=== PATIENT | male | born 1960 | race American Indian/Alaskan Native ===

== ENCOUNTER 2021-02-28 14:17 | Emergency (ER) | payer OTHER ==
--- NOTE | 2021-02-28 14:47 | EDM.PDOC ---
<Oneil Moon - Last Filed: 02/28/21 18:21> ED HPI GENERAL MEDICAL PROBLEM - General Chief Complaint: Cardiovascular Problem Stated Complaint: [facility] Time Seen by Provider: 02/28/21 14:32 - Related Data Allergies Allergy/AdvReac Type Severity Reaction Status Date / Time Penicillins Allergy Severe Rash Verified 02/28/21 14:25 Home Meds: Home Meds Celecoxib [CeleBREX] 0 mg PO DAILY 02/28/21 [History] Docusate Sodium [Colace] 100 mg PO DAILY 02/28/21 [History] Tamsulosin HCl [Flomax] 0.4 mg PO DAILY 02/28/21 [History] Venlafaxine [Effexor] 0 mg PO DAILY 02/28/21 [History] Course - Re-Assessments/Exams Free Text/Narrative Re-Assessment/Exam: 02/28/21 18:[address] Wilkins. I have evaluated and examined the patient, and agree with Dr. Wilkins's history and physical examination as documented. The patient has a history of hypertension, yet his medication list does not list any antihypertensive medications. When asked about this, the patient reports that he takes clonidine and losartan every morning - he does not recall the doses offhand. He has been taking these for many years, including this morning. His puts his pills into a pillbox, therefore there is no chance that he could have accidentally doubled up, however, these medications are in addition to tamsulosin that he takes for BPH. Because the patient is hypotensive but not orthostatic, and his extensive work-up is completely unremarkable, I think it most likely that the patient's hypotension is due to the combination of his clonidine, losartan, and tamsulosin, in addition to perhaps being a bit dry, as evidenced by his dark kendell urine. Now that the patient has received 2.5 L of IV fluid, his BP is up to 106/64, and he reports that he is feeling much better, but hungry. A meal has been ordered. Once he has finished dinner, I expect him to be fit for discharge home. Departure - Departure Disposition: Home, Self-Care 01 Clinical Impression: Hypotension determined by examination, Hypotension due to drugs Adverse effects of medication Qualifiers: Encounter type: initial encounter Qualified Code(s): T50.905A - Adverse effect of unspecified drugs, medicaments and biological substances, initial encounter Referrals: PCP,Not In Area [Primary Care Provider] - Forms: ED Department Discharge Additional Instructions: Evaluation in the emergency room today in regards to feeling lightheaded dizzy after work yesterday and again after getting back from mine on today. Feelings were strong enough to make you feel like he could pass out. Luckily you did not fall or get hurt. Blood pressure in the emergency room was found to be quite low with a systolic blood pressure of 85-89/60. No obvious reason for this was identified on history or physical examination. You were therefore given a liter of fluids and paramedics had given you 500 mils of fluid in route to [facility]. Even after a liter and a half of fluids you continue to have a low blood pressure. Lab tests did not reveal any abnormalities in particular no sig nificant evidence of dehydration. You therefore were given his second liter of IV fluid and blood pressure did come up slightly with this. Further interrogation revealed that you are on a another blood pressure medication called losartan 100 mg/hydrochlorothiazide 25 mg tablet daily for blood pressure control as well as the tamsulosin which is being used for prostate shrinkage but is also a blood pressure lowering agent. It is suspect the combination is too much for you and lowering your blood pressure too much. Therefore at this time advised to stop the losartan/hydrochlorothiazide tablet and have your blood pressure checked every couple of weeks to see if there is any indication that you truly need a blood pressure pill. I suspect with your blood pressure this low you do not need any further blood pressure medication at this time. Please note it will take several days for the losartan medication to get out of your bloodstream completely usually between 3 and 5 days therefore you could still experience a few episodes of dizziness lightheadedness until the medication is fully out of your bloodstream. <Audie Wilkins - Last Filed: 02/28/21 19:22> ED HPI GENERAL MEDICAL PROBLEM - General Source of Information: Reports: Patient, Family (spouse) History Limitations: Reports: No Limitations - History of Present Illness INITIAL COMMENTS - FREE TEXT/NARRATIVE: 60-year-old male [place] presents to the ED per [facility], feeling lightheaded dizzy like he could faint. Blood pressure on initial evaluation was 91/60. He states it is normally 130/80. Orthostatic blood pressures today lying was 84/59 with a heart rate of 65 sitting it was 87/62 with a heart rate of 75 and standing it went down to 80/60 with a pulse of 79 sats remained stable at 97%. He is not exhibiting any outward signs of an upper or lower GI bleed. He does not eat or drink all that well states he only eats once daily. Today he got up very early and drove to my not and back and when he got out of the vehicle he felt lightheaded dizzy like he might pass out. He has had no nausea vomiting or diarrhea or other fluid losses to account for his illness. He is on no new medications. He is on a antihypertensive medication. Appreciated first episode of feeling dizzy lightheaded after getting off work last night around 1630 hrs. He then experienced again this morning after getting back from my not. Experienced associated numbness tingling in his fingers and toes as well I believe due to hyperventilation syndrome. His spouse commented that he also seem to cramp up like 1 would see with dehydration. Paramedics assessed him and give him a 500 mils fluid bolus in route to the hospital. He denies taking Motrin Aleve or aspirin on a regular basis. However his med list indicates that he is on Celebrex daily. He called 911. Onset: Today, Sudden Onset Date: 02/27/21 Onset Time: 16:30 (Is noticed feeling lightheaded dizzy and weak yesterday after getting off work.) Duration: Day(s): (Last 24 hours.), Intermittent, Waxing/Waning Location: Reports: Generalized (Neurolysed weakness lightheadedness dizziness and feeling like he might faint.) Quality: Denies: Same as Previous Episode Severity: Moderate Improves with: Reports: Rest, Other (Lying down seems to help as well.) Worsens with: Reports: Movement (Worse with standing up) Context: Denies: Activity, Exercise, Lifting, Sick Contact, Trauma, Other Associated Symptoms: Reports: Malaise, Nausea/Vomiting (Perhaps a little nausea this morning after). Denies: No Other Symptoms, Confusion, Chest Pain, Cough, cough w sputum, Diaphoresis, Fever/Chills, Headaches, Loss of Appetite, Rash, Seizure, Shortness of Breath, Syncope, Weakness, Other Treatments END FINDER TWISTING DEPARTMENT: Reports: Other (see below) (None.) Headache Pain Score (Numeric/FACES): 2 Past Medical History HEENT History: Reports: Impaired Vision Cardiovascular History: Reports: Hypertension Gastrointestinal History: Reports: Diverticulosis Genitourinary History: Reports: Prostate Disorder - Past Surgical History HEENT Surgical History: Reports: Tonsillectomy GI Surgical History: Reports: Other (See Below) Other GI Surgeries/Procedures: "Piece of intestine was cut out." Musculoskeletal Surgical History: Reports: Shoulder Surgery Social & Family History - Tobacco Use Tobacco Use Status *Q: Current Every Day Tobacco User Years of Tobacco use: 40 Packs/Tins Daily: 1 - Caffeine Use Caffeine Use: Reports: Coffee - Recreational Drug Use Recreational Drug Use: Yes Recreational Drug Type: Reports: Marijuana/Hashish - Living Situation & Occupation Living situation: Reports: Occupation: Employed ED ROS GENERAL - Review of Systems Review Of Systems: See Below Constitutional: Reports: Malaise, Weakness, Fatigue, Decreased Appetite. Denies: Fever, Chills, Weight Loss HEENT: Reports: No Symptoms, Glasses Respiratory: Denies: Shortness of Breath, Wheezing (Masses sometimes for reading), Pleuritic Chest Pain, Cough Cardiovascular: Reports: Blood Pressure Problem, Dyspnea on Exertion (On occasion .), Edema (Trace around the ankles at times), Lightheadedness. Denies: Chest Pain, Claudication, Orthopnea (He is on antihypertensive medication) Endocrine: Reports: Fatigue GI/Abdominal: Reports: No Symptoms. Denies: Diarrhea, Hematemesis, Hematochezia, Melena : Reports: Frequency, Other Musculoskeletal: Reports: Back Pain, Joint Pain (Nocturia x2. Known BPH.) Skin: Reports: No Symptoms Neurological: Reports: Dizziness, Difficulty Walking, Weakness. Denies: Syncope (Dizzy today feeling of near syncope.) Psychiatric: Reports: No Symptoms (To generalized weakness) Hematologic/Lymphatic: Reports: No Symptoms Immunologic: Reports: No Symptoms ED EXAM, GENERAL - Physical Exam Exam: See Below Exam Limited By: No Limitations General Appearance: Alert, WD/WN, No Apparent Distress, Other (Temperature is 36.2 degrees. Heart rate 78 and sinus. Respiratory to 16 with O2 sats of 98% room air BP was 90-73 initially. It did come down to 81/60 for period of time. Note he had been given 500 mils of normal saline by paramedics in route to the hospital.) Eye Exam: Bilateral Eye: Normal Inspection, PERRL (No scleral icterus or blepharal pallor.) Ears: Normal TMs Throat/Mouth: Normal Inspection, Normal Lips, Normal Teeth, Normal Oropharynx Head: Atraumatic, Normocephalic Neck: Normal Inspection, Supple, Non-Tender, Full Range of Motion. No: Lymphadenopathy (L), Lymphadenopathy (R) Respiratory/Chest: No Respiratory Distress, Lungs Clear, Normal Breath Sounds, No Accessory Muscle Use, Chest Non-Tender Cardiovascular: Normal Peripheral Pulses, Regular Rate, Rhythm, No Edema, No Gallop, No Murmur, No Rub Peripheral Pulses: 2+: Posterior Tibial (L), Posterior Tibial (R), Dorsalis Pedis (L), Dorsalis Pedis (R), 3+: Carotid (L), Carotid (R) GI/Abdominal: Normal Bowel Sounds, Soft, Non-Tender, No Organomegaly, No Mass, Pelvis Stable Back Exam: Normal Inspection, Full Range of Motion. No: CVA Tenderness (L), CVA Tenderness (R) Extremities: Normal Inspection, Normal Range of Motion, Non-Tender, Other Neurological: Alert, Oriented (His pedal edema around the ankles.), CN II-XII Intact, Normal Cognition Psychiatric: Normal Affect, Normal Mood Skin Exam: Warm, Dry, Intact, Normal Color, No Rash #1 Interpretation EKG Date: 02/28/21 Time: 14:19 Rhythm: NSR Rate (Beats/Min): 82 [place]: LAD-Left [place] Deviation (-47 degrees) P-Wave: Enlarged (Left atrial hypertrophy pattern) QRS: LBBB (Left anterior fascicular block pattern) ST-T: Other (T wave flattening aVL nonspecific finding) QT: Normal EKG Interpretation Comments: Abnormal ECG #2 Interpretation EKG Date: 02/28/21 Time: 15:17 Rhythm: NSR Rate (Beats/Min): 67 [place]: LAD-Left [place] Deviation (-43 degrees left axis deviation) P-Wave: Enlarged (Left atrial hypertrophy pattern) QRS: LBBB ST-T: Other (Left anterior fascicular block pattern diffuse early repolarization pattern) QT: Normal EKG Interpretation Comments: Abnormal ECG Course - Vital Signs Last Recorded V/S: Last Vital Signs Temp 36.2 C 02/28/21 14:23 Pulse 78 02/28/21 14:23 Resp 16 02/28/21 14:23 BP 92/73 02/28/21 14:23 Pulse Ox 98 02/28/21 14:23 Orthostatic Blood Pressure [ 84/58 Standing] Orthostatic Blood Pressure [ 82/55 Sitting] Orthostatic Blood Pressure [ 91/58 Supine] - Orders/Labs/Meds Orders: Active Orders 24 hr Category Date Time Status EKG Documentation Completion [RC] STAT Care 02/28/21 14:46 Active Orthostatic Vital Signs [RC] ASDIRECTED Care 02/28/21 14:45 Active Orthostatic Vital Signs [RC] ASDIRECTED Care 02/28/21 16:33 Active CULTURE BLOOD [BC] Stat Lab 02/28/21 15:03 Received CULTURE BLOOD [BC] Stat Lab 02/28/21 15:09 Received Dextrose 5%-Lactated Ringers 1,000 ml Med 02/28/21 15:00 Active IV ASDIRECTED Lactated Ringers [Ringers, Lactated] 1,000 ml Med 02/28/21 17:15 Active IV ASDIRECTED Blood Culture x2 Reflex Set [OM.PC] Stat Oth 02/28/21 14:46 Ordered Medication Orders Dextrose/Lactated Ringer's (Dextrose 5%-Lactated Ringers) 1,000 mls @ 999 mls/hr IV ASDIRECTED PEDRO Last Admin: 02/28/21 16:45 Dose: 999 mls/hr Documented by: Infusion: 02/28/21 16:27 Dose: 999 mls/hr Documented by: Admin: 02/28/21 15:26 Dose: 999 mls/hr Documented by: GREG Lactated Ringer's (Ringers, Lactated) 1,000 mls @ 999 mls/hr IV ASDIRECTED PEDRO Last Admin: 02/28/21 17:15 Dose: 999 mls/hr Documented by: MARILUZ Labs: Laboratory Tests 02/28/21 02/28/21 02/28/21 Range/Units 15:09 15:09 15:09 WBC 13.35 H (4.23-9.07) K/mm3 RBC 4.67 (4.63-6.08) M/mm3 Hgb 13.9 (13.7-17.5) gm/dl Hct 41.6 (40.1-51.0) % MCV 89.1 (79.0-92.2) fl MCH 29.8 (25.7-32.2) pg MCHC 33.4 (32.2-35.5) g/dl RDW Std Deviation 45.1 H (35.1-43.9) fL Plt Count 378 H (163-337) K/mm3 MPV 9.3 L (9.4-12.3) fl Neut % (Auto) 81.8 H (34.0-67.9) % Lymph % (Auto) 10.3 L (21.8-53.1) % Harmon % (Auto) 6.7 (5.3-12.2) % Eos % (Auto) 0.7 L (0.8-7.0) Baso % (Auto) 0.3 (0.1-1.2) % Neut # (Auto) 10.90 H (1.78-5.38) K/mm3 Lymph # (Auto) 1.38 (1.32-3.57) K/mm3 Harmon # (Auto) 0.90 H (0.30-0.82) K/mm3 Eos # (Auto) 0.10 (0.04-0.54) K/mm3 Baso # (Auto) 0.04 (0.01-0.08) K/mm3 PT 11.1 (9.7-12.0) SECONDS INR 1.04 APTT 27.1 (21.7-31.4) SECONDS D-Dimer, Quantitative (0.19-0.50) mg/L Sodium 135 L (136-145) mEq/L Potassium 4.1 (3.5-5.1) mEq/L Chloride 100 (98-107) mEq/L Carbon Dioxide 26 (21-32) mEq/L Anion Gap 13.1 (5-15) BUN 16 (7-18) mg/dL Creatinine 1.2 (0.7-1.3) mg/dL Est Cr Clr Drug Dosing 63.33 mL/min Estimated GFR (MDRD) > 60 (>60) mL/min BUN/Creatinine Ratio 13.3 L (14-18) Glucose 113 H (74-106) mg/dL Lactic Acid (0.4-2.0) mmol/L Calcium 8.9 (8.5-10.1) mg/dL Magnesium 2.3 (1.8-2.4) mg/dl Total Bilirubin 0.5 (0.2-1.0) mg/dL AST 15 (15-37) U/L ALT 21 (16-63) U/L Alkaline Phosphatase 51 (46-116) U/L CK-MB (CK-2) 1.6 (0-3.6) ng/ml Troponin I < 0.017 (0.00-0.056) ng/mL C-Reactive Protein 0.6 (<1.0) mg/dL NT-Pro-B Natriuret Pep (0-125) pg/mL Total Protein 7.4 (6.4-8.2) g/dl Albumin 3.8 (3.4-5.0) g/dl Globulin 3.6 gm/dL Albumin/Globulin Ratio 1.1 (1-2) Urine Color (Yellow) Urine Appearance (Clear) Urine pH (5.0-8.0) Ur Specific [place] (1.005-1.030) Urine Protein (Negative) Urine Glucose (UA) (Negative) Urine Ketones (Negative) Urine Occult Blood (Negative) Urine Nitrite (Negative) Urine Bilirubin (Negative) Urine Urobilinogen (0.2-1.0) Ur Leukocyte Esterase (Negative) U Hyaline Cast (Auto) (0-5) /lpf Urine RBC (0-5) /hpf Urine WBC (0-5) /hpf Ur Squamous Epith Cells (0-5) /hpf Urine Bacteria (FEW) /hpf Urine Mucus (FEW) /hpf 02/28/21 02/28/21 02/28/21 Range/Units 15:09 15:09 15:09 WBC (4.23-9.07) K/mm3 RBC (4.63-6.08) M/mm3 Hgb (13.7-17.5) gm/dl Hct (40.1-51.0) % MCV (79.0-92.2) fl MCH (25.7-32.2) pg MCHC (32.2-35.5) g/dl RDW Std Deviation (35.1-43.9) fL Plt Count (163-337) K/mm3 MPV (9.4-12.3) fl Neut % (Auto) (34.0-67.9) % Lymph % (Auto) (21.8-53.1) % Harmon % (Auto) (5.3-12.2) % Eos % (Auto) (0.8-7.0) Baso % (Auto) (0.1-1.2) % Neut # (Auto) (1.78-5.38) K/mm3 Lymph # (Auto) (1.32-3.57) K/mm3 Harmon # (Auto) (0.30-0.82) K/mm3 Eos # (Auto) (0.04-0.54) K/mm3 Baso # (Auto) (0.01-0.08) K/mm3 PT (9.7-12.0) SECONDS INR APTT (21.7-31.4) SECONDS D-Dimer, Quantitative < 0.19 L (0.19-0.50) mg/L Sodium (136-145) mEq/L Potassium (3.5-5.1) mEq/L Chloride (98-107) mEq/L Carbon Dioxide (21-32) mEq/L Anion Gap (5-15) BUN (7-18) mg/dL Creatinine (0.7-1.3) mg/dL Est Cr Clr Drug Dosing mL/min Estimated GFR (MDRD) (>60) mL/min BUN/Creatinine Ratio (14-18) Glucose (74-106) mg/dL Lactic Acid 0.7 (0.4-2.0) mmol/L Calcium (8.5-10.1) mg/dL Magnesium (1.8-2.4) mg/dl Total Bilirubin (0.2-1.0) mg/dL AST (15-37) U/L ALT (16-63) U/L Alkaline Phosphatase (46-116) U/L CK-MB (CK-2) (0-3.6) ng/ml Troponin I (0.00-0.056) ng/mL C-Reactive Protein (<1.0) mg/dL NT-Pro-B Natriuret Pep 50 (0-125) pg/mL Total Protein (6.4-8.2) g/dl Albumin (3.4-5.0) g/dl Globulin gm/dL Albumin/Globulin Ratio (1-2) Urine Color (Yellow) Urine Appearance (Clear) Urine pH (5.0-8.0) Ur Specific [place] (1.005-1.030) Urine Protein (Negative) Urine Glucose (UA) (Negative) Urine Ketones (Negative) Urine Occult Blood (Negative) Urine Nitrite (Negative) Urine Bilirubin (Negative) Urine Urobilinogen (0.2-1.0) Ur Leukocyte Esterase (Negative) U Hyaline Cast (Auto) (0-5) /lpf Urine RBC (0-5) /hpf Urine WBC (0-5) /hpf Ur Squamous Epith Cells (0-5) /hpf Urine Bacteria (FEW) /hpf Urine Mucus (FEW) /hpf 02/28/21 Range/Units 15:27 WBC (4.23-9.07) K/mm3 RBC (4.63-6.08) M/mm3 Hgb (13.7-17.5) gm/dl Hct (40.1-51.0) % MCV (79.0-92.2) fl MCH (25.7-32.2) pg MCHC (32.2-35.5) g/dl RDW Std Deviation (35.1-43.9) fL Plt Count (163-337) K/mm3 MPV (9.4-12.3) fl Neut % (Auto) (34.0-67.9) % Lymph % (Auto) (21.8-53.1) % Harm[place] % (Auto) (5.3-12.2) % Eos % (Auto) (0.8-7.0) Baso % (Auto) (0.1-1.2) % Neut # (Auto) (1.78-5.38) K/mm3 Lymph # (Auto) (1.32-3.57) K/mm3 [place] # (Auto) (0.30-0.82) K/mm3 Eos # (Auto) (0.04-0.54) K/mm3 Baso # (Auto) (0.01-0.08) K/mm3 PT (9.7-12.0) SECONDS INR APTT (21.7-31.4) SECONDS D-Dimer, Quantitative (0.19-0.50) mg/L Sodium (136-145) mEq/L Potassium (3.5-5.1) mEq/L Chloride (98-107) mEq/L Carbon Dioxide (21-32) mEq/L Anion Gap (5-15) BUN (7-18) mg/dL Creatinine (0.7-1.3) mg/dL Est Cr Clr Drug Dosing mL/min Estimated GFR (MDRD) (>60) mL/min BUN/Creatinine Ratio (14-18) Glucose (74-106) mg/dL Lactic Acid (0.4-2.0) mmol/L Calcium (8.5-10.1) mg/dL Magnesium (1.8-2.4) mg/dl Total Bilirubin (0.2-1.0) mg/dL AST (15-37) U/L ALT (16-63) U/L Alkaline Phosphatase (46-116) U/L CK-MB (CK-2) (0-3.6) ng/ml Troponin I (0.00-0.056) ng/mL C-Reactive Protein (<1.0) mg/dL NT-Pro-B Natriuret Pep (0-125) pg/mL Total Protein (6.4-8.2) g/dl Albumin (3.4-5.0) g/dl Globulin gm/dL Albumin/Globulin Ratio (1-2) Urine Color Dark yellow (Yellow) Urine Appearance Clear (Clear) Urine pH 7.0 (5.0-8.0) Ur Specific [place] 1.025 (1.005-1.030) Urine Protein 1+ H (Negative) Urine Glucose (UA) Negative (Negative) Urine Ketones Negative (Negative) Urine Occult Blood Negative (Negative) Urine Nitrite Negative (Negative) Urine Bilirubin 1+ H (Negative) Urine Urobilinogen 1.0 (0.2-1.0) Ur Leukocyte Esterase Negative (Negative) U Hyaline Cast (Auto) 5-10 H (0-5) /lpf Urine RBC 0-5 (0-5) /hpf Urine WBC 0-5 (0-5) /hpf Ur Squamous Epith Cells 0-5 (0-5) /hpf Urine Bacteria Rare (FEW) /hpf Urine Mucus Few (FEW) /hpf Meds: Medications Generic Name Dose Route Start Last Admin Trade Name Freq PRN Reason Stop Dose Admin Dextrose/Lactated Ringer's 1,000 mls @ 999 mls/hr 02/28/21 15:00 02/28/21 16:45 Dextrose 5%-Lactated Ringers IV 999 mls/hr ASDIRECTED PEDRO Administration Lactated Ringer's 1,000 mls @ 999 mls/hr 02/28/21 17:15 02/28/21 17:15 Ringers, Lactated IV 999 mls/hr ASDIRECTED PEDRO Administration - Radiology Interpretation Free Text/Narrative:: 60-year-old male presents to the ED for evaluation of feeling dizzy lightheaded and like he is going to faint. He felt this way after getting off work yesterday about 1630 hrs. and he did go to bed early. He tends to rise very early in the morning like 4:00 to go to work. Today he drove from [place] to my not and back and once he got out of the car he began to feel unwell lightheaded dizzy and like he was going to faint again. Associated some numbness and tingling in his extremities as well. Blood pressure initially was 81/60. Paramedics administered 500 mils of normal saline in route to the hospital. His color is good and does appear to be suffering blood loss. Plan IV D5 Ringer's lactate at open. Routine labs will be collected ECG and orthostatic blood pressures after is completed a liter of fluid. - Re-Assessments/Exams Free Text/Narrative Re-Assessment/Exam: 02/28/21 16:24 White count is 13.35 mildly elevated. The differential shows 82% neutrophils. Hemoglobin is 13.9 with hematocrit of 41.6. Platelet count 378,0 00 slightly elevated. PT is 11.1 with an INR of 1.04 PTT is 27.1. Sodium is 135 potassium is 4.1. Chloride 100 with a bicarb of 26. Anion gap is 13.1. BUN is 16 with a creatinine of 1.2 and a GFR greater than 60. Glucose is 113 lactic acid 0.7 calcium 8.9 magnesium 2.3. Liver function normal. CK-MB fraction is 1.6 troponin I was less than 0.017. C-reactive protein is 0.6 BNP is only 50. Total protein 7.4 with an albumin fraction of 3.8 globulin is 3.6. Urinalysis showed dark yellow urine with 1+ protein and 1+ bilirubin. There is 5-10 hyaline casts within the urine but no signs of infection. Hest x-ray done portably revealed normal cardiac silhouette. Slight prominence of the right pulmonary artery. The lungs are otherwise clear. No pleural effusion no pneumothorax. 02/28/21 16:32 speaking with the patient he is easily arousable. His blood pressure however remains low at 84/62. Rate is 66/min. He is afebrile. There is no evidence of an occult GI bleed at this time and no signs of infection in the above lab work. No evidence of cardiogenic etiology to low blood pressure. He states he has perhaps lost 5 pounds of weight in the last few months but nothing drastic. Plan will be to check his orthostatic blood pressures once again and if he continues to remain orthostatic he will receive another liter of IV fluids. 02/28/21 17:00: States he feels fine. He has completed a liter of D5 normal saline. Repeat orthostatic blood pressures done at 1635 hrs. show a supine blood pressure of 91/58 with a heart rate of 67. Sitting blood pressure is 82/55 with a heart rate of 71. Standing blood pressure is 84/58 with heart rate of 74. Therefore his blood pressure remains low. We will plan on transfusing another liter of Ringer's lactate at open. 02/28/21 19:16 Dr. Moon evaluated the patient at my request. He was able to establish that the patient is indeed on losartan 100 mg/hydrochlorothiazide 25 mg tablet once daily as well as the tamsulosin 4 mg daily. He has perhaps lost maybe 5 or 6 pounds of weight in the last few months. The therefore it is likely that he has been wandering around with a blood pressure of 100 systolic all the time. He has completed 2-1/2 L of fluid and his blood pressure remains slightly over 105 systolic at this time. Patient advised to stop the losartan/hydrochlorothiazide medication as it does not appear that he is hypertensive at this time or the tamsulosin is working well enough as an alpha- natalia to maintain his blood pressure in the normal range. The losartan could certainly be added back on and half dose if needed but he has a long way to go before his blood pressure would be reached greater than 140 systolic. He was advised that will take 3 or 4 days for the losartan to lower its half-life in h is bloodstream. He will be discharged home in the care of his . Departure - Departure Time of Disposition: 19:18 Reason for Transfer *Q: Other Condition: Fair Sepsis Event Note (ED) - Evaluation Sepsis Screening Result: No Definite Risk - Focused Exam Vital Signs: Vital Signs Temp Pulse Resp BP Pulse Ox 02/28/21 14:23 36.2 C 78 16 92/73 98 - My Orders Last 24 Hours: My Active Orders 02/28/21 14:45 Orthostatic Vital Signs [RC] ASDIRECTED 02/28/21 14:46 EKG Documentation Completion [RC] STAT Blood Culture x2 Reflex Set [OM.PC] Stat 02/28/21 15:00 Dextrose 5%-Lactated Ringers 1,000 ml IV ASDIRECTED 02/28/21 15:03 CULTURE BLOOD [BC] Stat 02/28/21 15:09 CULTURE BLOOD [BC] Stat 02/28/21 16:33 Orthostatic Vital Signs [RC] ASDIRECTED 02/28/21 17:15 Lactated Ringers [Ringers, Lactated] 1,000 ml IV ASDIRECTED - Assessment/Plan Last 24 Hours: My Active Orders 02/28/21 14:45 Orthostatic Vital Signs [RC] ASDIRECTED 02/28/21 14:46 EKG Documentation Completion [RC] STAT Blood Culture x2 Reflex Set [OM.PC] Stat 02/28/21 15:00 Dextrose 5%-Lactated Ringers 1,000 ml IV ASDIRECTED 02/28/21 15:03 CULTURE BLOOD [BC] Stat 02/28/21 15:09 CULTURE BLOOD [BC] Stat 02/28/21 16:33 Orthostatic Vital Signs [RC] ASDIRECTED 02/28/21 17:15 Lactated Ringers [Ringers, Lactated] 1,000 ml IV ASDIRECTED
--- NOTE | 2021-02-28 15:16 | CR ---
Chest: Portable view of the chest was obtained. Comparison: No prior chest imaging is available. Heart size and mediastinum are normal. Lungs are clear with no acute parenchymal change. Multiple old healed right-sided rib fractures are noted. Impression: 1. Nothing acute is appreciated on portable chest x-ray. Diagnostic code #2
[2021-02-28] MEDS: Dextrose 5%-Lactated Ringers 1,000 ML IV SCH ×2 (15:26→16:45)
[2021-02-28] MEDS ORDERED: Lactated Ringers 1,000 ML IV SCH (17:15)
== END 2021-02-28 19:48 | disposition home or self-care (01) ==
LOC: JD.ED 14:17
DX: I95.2 Hypotension due to drugs (principal); I10 Essential (primary) hypertension; Z72.0 Tobacco use; Z88.0 Allergy status to penicillin; Z79.899 Other long term (current) drug therapy; T44.6X5A Adverse effect of alpha-adrenoreceptor antagonists, initial encounter; T46.5X5A Adverse effect of other antihypertensive drugs, initial encounter
CPT/HCPCS: 36415; 71045; 80053; 81001; 82553; 83605; 83735; 83880; 84484; 85025; 85379; 85610; 85730; 86140; 87040; 93005; 99285; J7120; J7121; 93010; 99284